=== PATIENT | male | born 1950 | race Caucasian/White ===

== ENCOUNTER 2019-10-04 09:48 | Outpatient (CLI) | payer MEDICARE, MEDICAID, SELFPAY ==
--- NOTE | 2019-10-04 10:07 | XR_ITS ---
WS: [id number] XR chest 2V* [id number] REASON FOR EXAM: SHORTNESS OF BREATH FINDINGS: In the right upper lung there is a questionable small pneumothorax. The reticular nodular pattern throughout both lung ortega are seen. The left hemidiaphragm is elevated and there is an irregular nodular density over the diaphragm. A scoliotic curve convex to the right. There is arteriosclerotic changes in the arch of the aorta. XR/XR chest 2V* [id number] IMPRESSION: Suspect small pneumothorax in the right upper lung. There is a questionable nodule overriding the left hemidiaphragm. Scoliotic curve with fibrosis. Mild chronic obstructive pulmonary disease. We recommend follow-up CT to rule out the above findings
== END 2019-10-04 09:49 | disposition home or self-care (01) ==
LOC: RAD 09:57
PROVIDERS: Family Provider Nurse Practitioner Family; PCP Nurse Practitioner Family; Visit Provider Internal Medicine Nephrology
DX: R91.1 Solitary pulmonary nodule (principal); J44.9 Chronic obstructive pulmonary disease, unspecified
CPT/HCPCS: 71046